=== PATIENT | male | born 1960 | race Caucasian/White ===

== ENCOUNTER → 2020-10-21 | Outpatient (CLI) | payer OTHER ==
[2016-05-04 11:16] VITALS: BP 142/98
[~2020-10-21] MED LIST: ASPI325T11 PO; CARV12.511 PO; CARV3.1210 PO; CARV6.2511 PO; LOSA-73 PO; LOSA100T14 PO; Nicotine TD; OXYC1TAB7 PO; SIMV10TA15 PO
--- NOTE | 2020-10-21 13:59 | RAD ---
MR#: [id number] Date of Study: 10/21/2020 Ordering Physician: RANDY FOWLER, Referring Physician: RANDY FOWLER, Tech: Calixto Mejia MBA, RDMS, RVT, RDCS, RTR APPROVED REPORT Patient Location : OUT-PATIENT Indications Lower Extremity Pain : Bilateral Findings Limited grayscale images of the bilateral saphenofemoral junctions are grossly unremarkable. The right great saphenous vein measures 5.7 mm and does not show any evidence of reflux. The left gr eat saphenous vein has been previously stripped. Bilateral lesser saphenous veins did not reveal any obvious evidence of reflux. Critical Notification Critical Value: No <Conclusion> 1. Negative for reflux in the right greater and bilateral lesser saphenous veins. 2. Prior left great saphenous vein stripping/ablation Signed by : Jaguar Tierney, Electronically Approved : 10/21/2020 13:58:54
== END ==
LOC: US 13:00
PROVIDERS: ATTEND Internal Medicine Cardiovascular Disease
DX: M79.605 Pain in left leg (principal); M79.604 Pain in right leg
CPT/HCPCS: 93970

== ENCOUNTER → 2021-07-08 | Outpatient (CLI) | payer OTHER ==
[2016-05-04 11:16] VITALS: BP 142/98
[~2021-07-08] MED LIST changes: +REGADENOSON 0.4 MG/5 ML DISP.SYRIN. IV ONE
--- NOTE | 2021-07-09 11:31 | RAD ---
MR#: [id number] Date of Study: 07/08/2021 Ordering Physician: RANDY FOWLER, Referring Physician: WARREN KRAUSE Tech: WOOD Rose, MAL Laurent) (N) APPROVED REPORT Test Type: Pharmacological Stress Nurse/Tech: Missy Pagan RN Test Indications: CAD,chest pain Cardiac History: Family history,GA,CABG, Hypertension Medications: See Electronic Medical Record Medical History: See Electronic Medical Record Resting ECG: SR with BBB Resting Heart Rate: 61 bpm Resting Blood Pressure: 142/86mmHg Pretest Chest Pain: No chest pain Nurse/Tech Notes S1,S2 and lungs clear to ascultation. Consent: The procedure was explained to the patient in lay terms. Informed consent was witnessed. Levy eout was entered into [facility]. History and Stress Test performed by WOOD Rose, MAL (R) (N) Pharm. Details Pharmacologic stress testing was performed using 0.4mg per 5ml of regadenoson given intravenously ove r 7-10 seconds. Stress Symptoms Dyspnea,chest discomfort POST EXERCISE Reason for Termination: Infusion complete Max HR: 88 bpm Max Blood Pressure: 129/84mmHg Blood Pressure response to exercise: Normal blood pressure response during stress. Heart Rate response to exercise: WNL Chest Pain: Yes. resolved by end of study Arrhythmia: No. INTERPRETATION Stress EKG Conclusion: The baseline EKG shows a sinus rhythm with nonspecific ST T wave changes. The stress EKG shows no significant changes from baseline. Abnormal baseline EKG but no EKG evidence of stress-induced ischemia. Imaging Protocol IMAGE PROTOCOL: Rest Tc-99m/stress Tc-99m 1 day Rest: Stress: Viability: Radiopharm.Tc99m [id number] Sestamibi Dose10.5mCi 33mCi Img Date 07/08/2021 07/08/2021 Inj-Img [id number]. 60min. Rest Admin Site:IV - Right HandAdministrator:RT Segundo (R)(N) Stress Admin Site: IV - Right HandAdministrator: Cj Basurto, RT (R)(N) STRESS DATA End Diast. Vol.122.0mlLVEDV index BSA58.0ml End Syst. Vol.37.0mlLVESV index BSA18.0ml Myocardial Opqq898.0gEject. Qcrcicyy88.0% Stress Scores Regional WT0.00Summed WT2.00 Regional WM0.00Summed WM2.00 LV Perfusion The stress scans show an inferior lateral defect. The rest scans show a smaller inferior lateral defect. Nuclear imaging suggests reversible ischemia in the inferior lateral wall with possibly a small previ ous infarct. Wall Motion Left ventricular systolic function is intact with an ejection fraction of 69%. LV Perf. Quant 17 Seg. SSS6.00 17 Seg. SRS2.00 17 Seg. SDS4.00 Stress Defect Extent (% LAD)0.00Rest Defect Extent (% LAD)0.00Rev. Defect Extent (% LAD)0.00 Stress Defect Extent (% LCX) 48.80Rest Defect Extent (% LCX)15.00Rev. Defect Extent (% LCX)31.30 Stress Defect Extent (% RCA)1.10Rest Defect Extent (% RCA)0.00Rev. Defect Extent (% RCA)1.10 Stress Defect Extent (% JOSE MARIA)13.50Rest Defect Extent (% JOSE MARIA)2.60Rev. Defect Extent (% JOSE MARIA)9.60 Conclusion 1. Abnormal baseline EKG but no EKG evidence of stress-induced ischemia. 2. Nuclear imaging showed reversible ischemia in the inferior lateral wall. 3. Intact LV systolic function with an ejection fraction of 69%. 4. Moderate to moderately high risk Lexiscan nuclear stress test. Signed by : Jon Renee MD Electronically Approved : 07/09/2021 11:30:43
== END ==
LOC: NM 08:44
PROVIDERS: ATTEND Internal Medicine Cardiovascular Disease
DX: I25.9 Chronic ischemic heart disease, unspecified (principal); R94.31 Abnormal electrocardiogram [ECG] [EKG]; I25.10 Atherosclerotic heart disease of native coronary artery without angina pectoris
CPT/HCPCS: 78452; 93017; A9500; J2785

== ENCOUNTER → 2021-10-05 | Outpatient (CLI) | payer OTHER ==
[2021-10-02 13:00] VITALS: BP 120/63
[~2021-10-05] MED LIST changes: +ACET325T21 PO; +ALPR0.5T6 PO; +ASPI-630 PO; +ASPI-886 PO; +BUPR150T15 PO; +CARV25TA PO; +CARV25TA2 PO; +CHLO25TA10 PO; +CRESTOR40 MG PO; +ESCITALOPRAM OX20 MG PO; +ESZO3TAB28 PO; +EZET10TA20 PO; +FENO145T3 PO; +FISH12002 PO; +ISOS30TA68 PO; +LEXAPRO20 MG PO; +LIPITOR80 MG PO; +LISI20TA18 PO; +LORA0.5T96 PO; +NITR0.4T22 SL; +OMEG1CAP50 PO; +OMEP20CA16 PO; +OMEP20TA63 PO; +RANO10002 PO; -REGADENOSON 0.4 MG/5 ML DISP.SYRIN. IV ONE; +TICA90TA PO; +ZOLP10TA PO
--- NOTE | 2021-10-05 11:25 | KCIC ---
AP and Lateral Views of the Chest 10/05/2021 10:43 AM Indication: cough Comparison: Chest radiograph May 02, 2016 Findings: There is no focal consolidation or infiltrate identified. Heart size is top normal. Prior m edian sternotomy noted. There is no evidence of pneumothorax or pleural effusion. No acute osseous ab normalities are identified. Impression: No evidence of acute cardiopulmonary process. Electronically signed by: Rommel Llanos MD (10/05/2021 11:23 AM) [id number]
== END ==
LOC: KCIC 10:38
PROVIDERS: ATTEND Family Medicine
DX: R05.9 Cough, unspecified (principal)
CPT/HCPCS: 71046